=== PATIENT | male | born 1990 ===

== ENCOUNTER 2017-01-26 21:17 | Emergency (ER) | payer SELFPAY ==
[2017-01-26] MEDS ORDERED: TYLENOL EXTRA500 M1 PO (21:32)
[2017-01-26] MEDS ORDERED: ULTRAM50 M1 PO (22:09)
[2017-05-13] MEDS ORDERED: NO HOME MEDICATION XX (13:26)
== END 2017-01-26 22:26 ==
LOC: EDMED 21:17
DX: K02.9 Dental caries, unspecified (principal); F17.200 Nicotine dependence, unspecified, uncomplicated